=== PATIENT | female | born 1985 | race Two or more races ===

== ENCOUNTER 2021-06-18 01:26 | Emergency (ER) | payer OTHER ==
[~2021-06-18] VITALS: Ht 162.6 cm; Wt 124.7 kg
== END 2021-06-18 05:07 | disposition home or self-care (01) ==
LOC: ER 01:26
DX: O46.92 Antepartum hemorrhage, unspecified, second trimester (principal); Z3A.22 22 weeks gestation of pregnancy

== ENCOUNTER 2021-09-07 16:31 | Emergency (ER) | payer OTHER ==
[~2021-09-07] VITALS: Ht 162.6 cm; Wt 126.1 kg
[2021-09-07] MEDS ORDERED: PRENA1 CHEW TA1.4 MG PO (16:47)
== END 2021-09-07 19:34 | disposition home or self-care (01) ==
LOC: ER 16:31
DX: O26.892 Other specified pregnancy related conditions, second trimester (principal); Z3A.18 18 weeks gestation of pregnancy; V43.53XA Car driver injured in collision with pick-up truck in traffic accident, initial encounter; Y93.89 Activity, other specified; Y92.413 State road as the place of occurrence of the external cause

== ENCOUNTER 2021-10-24 13:36 | Emergency (ER) | payer OTHER ==
[~2021-10-24] VITALS: Ht 162.6 cm; Wt 127.9 kg
[~2021-10-24 13:36] MED LIST: PRENA1 CHEW TA1.4 MG PO
== END 2021-10-24 16:20 | disposition home or self-care (01) ==
LOC: ER 13:36
DX: O26.892 Other specified pregnancy related conditions, second trimester (principal); Z3A.25 25 weeks gestation of pregnancy; R30.0 Dysuria; R35.0 Frequency of micturition

== ENCOUNTER 2022-01-19 14:00 | Inpatient (IN) | payer OTHER ==
[~2022-01-19] VITALS: Ht 162.6 cm; Wt 3.2 kg
[2022-02-01] MEDS ORDERED: PRENATAL CAPLE1 EAC1 PO (09:05)
== END 2022-02-04 11:53 | disposition home or self-care (01) | DRG 788 ==
LOC: OB/GYN 02-01 06:03 → LDR 02-01 06:03 → OB/GYN 02-01 14:24 → SURG 02-05 14:00
PROVIDERS: ADMIT Obstetrics & Gynecology; ATTEND Obstetrics & Gynecology
PROC: 4A1HXCZ Monitoring of Products of Conception, Cardiac Rate, External Approach (ICD-10-PCS; 2022-02-01)
PROC: 10D00Z1 Extraction of Products of Conception, Low, Open Approach (ICD-10-PCS; principal; 2022-02-01 20:00)
DX: O62.1 Secondary uterine inertia (principal); Z3A.39 39 weeks gestation of pregnancy; Z37.0 Single live birth; Z20.822 Contact with and (suspected) exposure to COVID-19

== ENCOUNTER 2022-01-24 12:50 | Outpatient (CLI) | payer OTHER | END 2022-01-24 13:35 | disposition home or self-care (01) | LOC: NST 12:50 | PROVIDERS: ATTEND Obstetrics & Gynecology Maternal & Fetal Medicine | DX: Z34.83 Encounter for supervision of other normal pregnancy, third trimester (principal) ==